=== PATIENT | male | born 1980 | race Caucasian/White ===

== ENCOUNTER 2017-03-07 00:50 | Emergency (ER) | payer MEDICAID ==
[~2017-03-07] VITALS: Ht 182.9 cm; Wt 106.6 kg
--- NOTE | 2017-03-07 01:08 | Emergency Room Report ---
History of Present Illness Time Seen by MD Villalta Presenting Problem in Triage Pt arrived:Walked Presenting Problem:LACERATION TO RIGHT HAND. 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 N Clinical Suspician of Infection? N Mental Status: 1 - Regular (Normal Baseline) Sepsis Risk:Possible Sepsis Risk Have you (or family members/close friends) recently traveled outside the [place]? N If Yes, where/when: Have you had exposure to infectious disease within the past month? N TB? Other? Specify: Source patient, RN notes reviewed, family, old records Exam Limitations no limitations Comment lac to rt hand bc cox on broken glass Cardiac Chest Pain Chest pain indicative of cardiac No Timing/Duration this evening Severity moderate ALLERGIES Coded Allergies: No Known Allergies (03/07/17) Home Medications Reported Medications No Known Home Medications History Medical History General CAD? No Angina: No NM: No Hypertension? No Hyperlipidemia? No CHF? No DVT? No PE? No COPD? No Asthma? No Anemia? No GERD? No Gastric ulcers? No GI Bleed? No Hernia? No Thyroid Problems? No Hypothyroidism? No CVA? No Seizures? No Diabetes? No Renal Insuffiency? No End Stage Renal Disease? No UTI? No Stones? No BPH? No GB Disease: No Nephritic Syndrome? No Asplenia? No Hepatitis? No Sickle Cell Disease? No Arthritis? No Migraines? No Cataracts? No Glaucoma? No MRSA? No HIV? No TB? No Anxiety? Yes Depression? No Cancer? No More? No Immunization Hx DT/Tetanus 5-10 Years Ago Surgical Hx Previous Surgery?Y TONSILS Social History Smoking Hx Smoker: Current Every Day Smoker Tobacco: Yes Type Cigarettes Packs/day < 1 Pack Alcohol Alcohol: No Drugs none Review of Systems All Other Systems Reviewed and Negative Constitutional denies fever Eyes denies drainage ENT denies: ear discharge. Respiratory denies cough, denies shortness of breath, denies wheezing Cardiovascular denies chest pain, denies palpitations, denies syncope Gastrointestinal denies abdominal pain, denies diarrhea, denies vomiting Genitourinary denies: dysuria, frequency, hesitancy, hematuria. Musculoskeletal denies back pain, denies joint pain, denies joint swelling, denies neck pain Skin see HPI, denies rash, other Psychiatric/Neurological denies emotional problems, denies seizure Physical Exam Vital Signs Vital Signs Date Time Temp Pulse Resp B/P Pulse O2 O2 Flow FiO2 Ox Delivery Rate 03/07 0150 98.8 98 20 98 03/07 0057 98.8 98 20 98 - WBC >12,000 or <4,000 or 10% bands? 2 or more SIRS Criteria Met? B/P: MAP: Creatinine >2.0? UA output<0.5ml/kg/hr for 2 hrs? Platelet count >100,000? Lactate >2.0mmol/1? INR >1.2 or PTT > than 60 sec? Evidence of Organ Dysfunction? Provider documented clinical suspician of infection? N Sepsis Criteria Count: 2 Sepsis Risk: Possible Sepsis Risk General Appearance no apparent distress Eye Exam - bilateral eye PERRL, bilateral eye EOMI Ear, Nose, Throat normal ENT inspection Neck supple Respiratory Status No: respiratory distress. 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 No Results/Orders Current Medication Orders Sig/Annalee Start time Last Medication Dose Route Stop Time Status Admin Lidocaine HCl 0 .STK-MED ONE 03/07 130 DC .ROUTE Diphtheria/Pertussis/ 0.5 ML ONCE ONE 03/07 115 DC 03/07 Tetanus Vacc IM 03/07 116 0122 Diphtheria/Pertussis/ 0 .STK-MED ONE 03/07 109 DC Tetanus Vacc IM Diphtheria/Pertussis/ 0 .STK-MED ONE 03/07 108 DC Tetanus Vacc IM Procedures Laceration/Wound Repair Laceration/Wound Repair Risks/benefits discussed with pt/guardian? Yes Tetanus status not up to date Wound Location hand Wound Length (cm) 1 Wound's Depth, Shape sucutaneous tissue Wound Explored no FB identified Risk of retained FB explained to pt/guardian? Yes Irrigated w/ Saline (ccs) 0 Wound Prep Hibiclens, Saline Anesthesia 1% Lidocaine, Local Volume Anesthetic (ccs) 2 Wound Debrided none Wound Repaired With sutures Suture Size/Type 4:0, Ethilon Layer Closure No Total Number Sutures 4 Sterile Dressing Applied Yes Splint Applied No Sling Applied No Departure Departure Time of Disposition 0145 Disposition DC Home or Self Care(routine) Clinical Impression Primary Impression: Hand laceration Qualifiers: Encounter type: initial encounter Foreign body presence: without foreign body Laterality: right Qualified Code: S61.411A - Laceration without foreign body of right hand, initial encounter Condition STABLE Patient Instructions DI for Laceration Repair Additional Instructions suture out 10 days and recheck if needed Discharge Counseling Counseled pt/family regarding diagnosis, follow up needs Prescriptions Current Visit Scripts No Known Home Medications ED Critical Care Critical Care No at 015
--- OUTSIDE RECORDS SUMMARY | 2017-03-13 11:56 | External Medical Summary Rpt | CCD ---
Author Author , LOURDES FREED Address Unknown Phone [email or web address] Care Team Providers Care Games Manager Name Role Phone VIVI TRINIDAD Unavailable Unavailable [facility] Unavailable Unavailable CENTER, [facility] Unavailable Unavailable MEDICAL CENTE, [facility] Unavailable Unavailable PHYSICIAN PRA, [facility] PHYSICIAN PRA LARON MICA, LARON Unavailable Unavailable [facility] Unavailable Unavailable MEDICAL G, [facility]available Unavailable HOLDINGS, [facility] MOGILEVSKI MARLENE, Unavailable Unavailable MOGILEVSKI MARLENE MOGILEVSKI MARLENE, Unavailable Unavailable [facility] MAR[facility] JEANNETTE RAN, JEANNETTE Unavailable Unavailable RAN RICE SHA, RICE SHA Unavailable Unavailable RISHMAWI HAZ, Unavailable Unavailable RISHMAWI HAZ BROOKE GHOSH ANATOLY, Unavailable Unavailable BROOKE GHOSH ANATOLY SHALASH AMI, SHALASH Unavailable Unavailable [facility], [facility] Unavailable Unavailable PRACTICE, [facility] PRACT[facility] Purpose Continuity of Care Document - 01-28-2015 through 2016 Problems Code Diagnosis DOS Provider Status [id number] FOREIGN 08-28-2016 [facility] EMERGENCY EYE PART PHYS UNS LT EYE INITIAL ENC [id number] INJ 03-12-2016 [facility] CON[facility] FAMILY RNEAL PRACTICE ABRASION W/O FB RT EYE INIT B1920 UNS VIRAL 03-11-2016 [place] HEPATITIS C FAMILY WITHOUT PRACTICE HEPATIC COMA G894 CHRONIC 03-11-2016 [place] PAIN FAMILY SYNDROME PRACTICE R209 UNSPECIFIED 03-11-[address] 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 UNSPECIFIED I214 NON-ST 11-08-2015 [facility]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 I308 OTHER FORMS 11-07-2015 [facility] PERICARDITI MEDICAL G S I340 NONRHEUMATI 11-07-2015 [facility] MEDICAL G INSUFFICIEN CY I361 NONRHEUMATI 11-07-2015 [facility] MEDICAL G INSUFFICIEN CY R609 EDEMA 11-07-2015 [facility] UNSPECIFIED REGIONAL MEDICAL CENTE R740 NONSPECIFIC 10-17-2015 [place] ELEVATION FAMILY LEVELS PRACTICE TRANSAMINAS E & LDH E8352 HYPERCALCEM 10-08-2015 [facility] IA FAMILY PRACTICE N529 MALE 10-08-2015 [facility] ERECTILE FAMILY DYSFUNCTION PRACTICE UNSPECIFIED Z209 CONTACT W/ 10-08-2015 [facility] AND [facility] EXPOSURE PRACTICE UNS COMMUNICABL E DISEASE Z139 ENCOUNTER 09-24-2015 [facility] FOR FAMILY SCREENING PRACTICE UNSPECIFIED 98475 UNSPECIFIED 01-28-2015 [facility] SITE OF N EMERGENCY ANKLE PHYS SPRAIN AND STRAIN E8859 FALL FROM 01-28-2015 [facility] OTHER N EMERGENCY SLIPPING PHYS TRIPPING OR STUMBLING Medications Na ND Rx Da Fi Fi Am Da Di Ph RX Ph St me C No te ll ll ou ys ag ar # ys at rm s nt no ma ic us Or Da si cy ia de te s n re d GE 24 03 04 5. 5 00 KE Ac NT 20 -3 -2 00 00 NT ti AM 80 0- 8- 0 01 UC ve IC 58 20 20 01 [place] IN 06 17 17 76 0 40 CV 0. S 3% PH AR EY MA E CY OP LL S C, DB A CV S PH AR MA CY #3 01 6 Procedures Procedure DOS Code Location Performer Comment REMOVAL 88547 [facility] REZA FB EYE 7 [place] [facility] EMERGENCY GUILLERMINA PHYS SUPERFICI AL XTRNL ECG 23964 [facility] 6 IMMEDIATE JR ANATOLY CONTINUOU CARE S RHYTHM CENTER W/I&R UP TO 48 HRS ECG 51006 [facility] RADER ROUTINE 6 REGIONAL ECG PHYSICIAN W/LEAST PRA 12 LDS I&R ONLY XTRNL ECG 86769 [facility] MCDERMOTT & 48 HR 6 REGIONAL REGIONAL RECORDING MEDICAL MEDICAL STEFANO AGARWAL ECHO 09068 [facility] LARON TTHRC R-T 6 NE HEALTH MICA 2D MEDICAL W/WOM-MOD G E COMPL SPEC&COLR D EXTERNAL 56983 [facility] MCDERMOTT ECG 6 REGIONAL REGIONAL SCANNING MEDICAL MEDICAL ANALYSIS STEFANO AGARWAL REPORT ECG 53661 [facility] MCDERMOTT ROUTINE 6 REGIONAL REGIONAL ECG MEDICAL MEDICAL W/LEAST CENTE CENTE 12 LDS TRCG ONLY W/O I&R COLLECTIO 89404 EVA ARAUJO N VENOUS 6 R FAMILY AMI BLOOD PRACTICE VENIPUNCT URE IADNA 12750 LAB [facility] HEPATITIS 6 ESHA ESHA C QUANT HOLDINGS HOLDINGS & [place] [address] LAB AUDREY LAB AUDREY PARATHORM 6 ESHA ESHA ONE HOLDINGS HOLDINGS NFCT AGNT 37271 LAB AUDREY LAB AUDREY GENOTYP 6 ESHA ESHA NUCLEIC HOLDINGS HOLDINGS ACID HEPATITIS C VIRUS CALCIUM 26034 LAB A[facility]Y LAB AUDREY IONIZED 6 ESHA ESHA HOLDINGS HOLD[place] HGB 29901 EVA PRASANTHBEVERLEY GLYCOSYLA 6 R FAMILY AMI RON PRACTICE DEVICE CLEARED FDA HOME USE Encounters Encounter Start End Date Code Location Performer Type Date EMERGENCY 88632 [facility] 7 7 [facility] EMERGENCY T VISIT PHYS MODERATE SEVERITY OFFICE 32176 JEANNETTE JEANNETTE OUTPATIEN 6 6 RAN RAN T VISIT 25 MINUTES OFFICE 95116 EVA GILLH OUTPATIEN 6 6 R FAMILY AMI T VISIT PRACTICE 15 MINUTES OFFICE 00684 EVA GILLH OUTPATIEN 6 6 R FAMILY AMI T VISIT PRACTICE 15 MINUTES OFFICE 11321 [facility] MOGILEVSK OUTPATIEN 6 6 I MARLENE I MARLENE T NEW 45 MINUTES [facility]PITAL [facility] - 6 6 REGIONAL OUTPATIEN MEDICAL T CENTE OFFICE 28635 VERATE PRASANTHLASH OUTPATIEN 6 6 R FAMILY AMI T VISIT PRACTICE 15 MINUTES OFFICE 94536 VERATE PRASANTHLASH OUTPATIEN 6 6 R FAMILY AMI T VISIT PRACTICE 15 MINUTES OFFICE 25594 VERATE PRASANTHLASH OUTPATIEN 6 6 R FAMILY AMI T NEW 45 PRACTICE MINUTES EMERGENCY 20661 [facility] 5 5 [place] DEPARTMEN EMERGENCY T VISIT PHYS HIGH/URGE NT SEVERITY
--- OUTSIDE RECORDS SUMMARY | 2017-03-13 11:56 | External Medical Summary Rpt ---
Author Author LOURDES Kasper, [employer]DES [employer] Organization [employer] Address Unknown Phone Unavailable
--- OUTSIDE RECORDS SUMMARY | 2017-03-13 11:56 | External Medical Summary Rpt | CCD ---
Demographics Preferred Language Sudanese Marital Status Unknown Holiness Affiliation Unknown Race Unknown Ethnic Group Unknown Author Author , SHARRI FREED Address Unknown Phone [email or web address] Immunization Name Date Rout CVX Reac Dose Comm Prov Is Faci e tion ent ider Refu lity Give sed n Td 10-0 9 999 Hist H191 No H191 (tommy 2-19 oric lt), 98 al Info adso rmat rbed ion - Sour ce Unsp ecif ied
--- OUTSIDE RECORDS SUMMARY | 2017-03-13 11:56 | External Medical Summary Rpt | CCD ---
Author Author , LOURDES FREED Address Unknown Phone [email or web address] Care Team Providers Care Robotic Welder Name Role Phone VIVI TRINIDAD Unavailable Unavailable [facility] Unavailable Unavailable CENTER, [facility] Unavailable Unavailable MEDICAL CENTE, [facility]ENTE [facility] Unavailable Unavailable PHYSICIAN PRA, [facility] PHYSICIAN PRA LARON MICA, LARON Unavailable Unavailable [facility] Unavailable Unavailable MEDICAL G, [facility] MEDICAL G [facility] Unavailable Unavailable HOLDINGS, [facility] MOGILEVSKI MARLENE, Unavailable Unavailable MOGILEVSKI MARLENE MOGILEVSKI MARLENE, Unavailable Unavailable MOGILEVSKI MARLENE JEANNETTE RAN, JEANNETTE Unavailable Unavailable RAN RICE SHA, RICE SHA Unavailable Unavailable RISHMAWI HAZ, Unavailable Unavailable RISHMAWI HAZ BROOKE GHOSH ANATOLY, Unavailable Unavailable BROOKE GHOSH ANATOLY SHALASH AMI, SHALASH Unavailable Unavailable [facility] Unavailable Unavailable EMERGENCY PH[facility], [facility] EM[facility] Unavailable Unavailable PRACTICE, [facility] Purpose Continuity of Care Document - 01-28-2015 through 2016 Problems Code Diagnosis DOS Provider Status [id number] FOREIGN 08-28-2016 [facility] N EMERGENCY EYE PART PHYS UNS LT EYE INITIAL ENC [id number] INJ 03-12-2016 [facility] [facility] FAMILY RNEAL PRACTICE ABRASION W/O FB RT EYE INIT B1920 UNS VIRAL 03-11-2016 [place] HEPATITIS C FAMILY WITHOUT PRACTICE HEPATIC COMA G894 CHRONIC 03-11-2016 [place] PAIN FAMILY SYNDROME PRACTICE R209 UNSPECIFIED 03-11-2016 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 NON-ST 11-08-2015 [facility]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 I308 OTHER FORMS 11-07-2015 [facility] PERICARDITI MEDICAL G S I340 NONRHEUMATI 11-07-2015 [facility] MEDICAL G INSUFFICIEN CY I361 NONRHEUMATI 11-07-2015 [facility]IC[facility] MEDICAL G INSUFFICIEN CY R609 EDEMA 11-07-2015 [facility] UNSPECIFIED REGIONAL MEDICAL CENTE R740 NONSPECIFIC 10-17-2015 [place] ELEVATION FAMILY LEVELS PRACTICE TRANSAMINAS E & LDH E8352 HYPERCALCEM 10-08-2015 [place] IA FAMILY PRACTICE N529 MALE 10-08-2015 [place] ERECTILE FAMILY DYSFUNCTION PRACTICE UNSPECIFIED Z209 CONTACT W/ 10-08-2015 [place] AND FAMILY EXPOSURE PRACTICE UNS COMMUNICABL E DISEASE Z139 ENCOUNTER 09-24-2015 [place] FOR FAMILY SCREENING PRACTICE UNSPECIFIED 83910 UNSPECIFIED 01-28-2015 [facility] SITE OF N EMERGENCY ANKLE PHYS SPRAIN AND STRAIN E8859 FALL FROM 01-28-2015 [facility] OTHER N EMERGENCY SLIPPING PHYS [...] Procedure DOS Code Location Performer Comment REMOVAL 20699 [facility] VIVI FB EYE 7 RIVRE CONJUNCTI EMERGENCY GUILLERMINA PHYS SUPERFICI AL XTRNL ECG 31092 [facility] 6 IMMEDIATE JR ANATOLY CONTINUOU CARE S RHYTHM CENTER W/I&R UP TO 48 HRS ECG 47798 [facility] RADER ROUTINE 6 REGIONAL ECG PHYSICIAN W/LEAST PRA 12 LDS I&R ONLY XTRNL ECG 06521 [facility] MCDERMOTT & 48 HR 6 REGIONAL REGIONAL RECORDING MEDICAL MEDICAL STEFANO AGARWAL ECHO 77526 [facility] L[facility] TTHRC R-T 6 NE HEALTH MICA 2D MEDICAL W/WOM-MOD G E COMPL SPEC&COLR D EXTERNAL 69864 [facility] MCDERMOTT ECG 6 REGIONAL REGIONAL SCANNING MEDICAL MEDICAL ANALYSIS CENTE CENTE REPORT ECG 63506 [facility] MCDERMOTT ROUTINE 6 REGIONAL REGIONAL ECG MEDICAL MEDICAL W/LEAST CENTE CENTE 12 LDS TRCG ONLY W/[place] [address] LAB [facility]UDREY LAB AUDREY PARATHORM 6 ESHA ESHA ONE HOLDINGS HOLDINGS CALCIUM 47121 LAB AUDREY LAB AUDREY IONIZED 6 ESHA ESHA HOLDINGS HOLDINGS NFCT AGNT 85726 LAB A[facility]Y LAB AUDREY GENOTYP 6 ESHA ESHA NUCLEIC HOLDINGS HOLDINGS ACID HEPATITIS C VIRUS COLLECTIO 61581 EVA ARAUJO N VENOUS 6 R FAMILY AMI BLOOD PRACTICE VENIPUNCT URE IADNA 65957 LAB [facility] LAB AUDREY HEPATITIS 6 ESHA ESHA C QUANT HOLDINGS HOLDINGS & REVERSE TRANSCRIP TION HGB 44825 DIPAKMAVERICK PRASANTHLASH GLYCOSYLA 6 R FAMILY AMI RON PRACTICE DEVICE CLEARED FDA HOME USE Encounters Encounter Start End Date Code Location Performer Type Date EMERGENCY 38847 [facility] 7 7 [facility] EMERGENCY T VISIT PHYS MODERATE SEVERITY OFFICE 89534 VERATE SHALASH OUTPATIEN 6 6 R FAMILY AMI T VISIT PRACTICE 15 MINUTES OFFICE 98286 JEANNETTE JEANNETTE OUTPATIEN 6 6 RAN RAN T VISIT 25 MINUTES OFFICE 32919 VERATE PRASANTHLASH OUTPATIEN 6 6 R FAMILY AMI T VISIT PRACTICE 15 MINUTES OFFICE 55908 [facility] MOGILEVSK OUTPATIEN 6 6 I MARLENE I MARLENE T NEW 45 MINUTES [facility]OSPITAL [facility] - 6 6 REGIONAL OUTPATIEN MEDICAL T CENTE OFFICE 86575 [place] PRASANTHLASH OUTPATIEN 6 6 R FAMILY AMI T VISIT PRACTICE 15 MINUTES OFFICE 55036 DIPAKCHESTE SHALASH OUTPATIEN 6 6 R FAMILY AMI T VISIT PRACTICE 15 MINUTES OFFICE 38184 [place] SHALASH OUTPATIEN 6 6 R FAMILY AMI T NEW 45 PRACTICE MINUTES EMERGENCY 92315 [facility] 5 5 [place] DEPARTMEN EMERGENCY T VISIT PHYS HIGH/URGE NT SEVERITY
--- OUTSIDE RECORDS SUMMARY | 2017-03-13 11:56 | External Medical Summary Rpt | CCD ---
Author Author , LOURDES FREED Address Unknown Phone [email or web address] Care Team Providers Care Multicultural Manager Name Role Phone VIVI TRINIDAD Unavailable Unavailable [facility] Unavailable Unavailable CENTER, [facility] Unavailable Unavailable MEDICAL CENTE, [facility] Unavailable Unavailable PHYSICIAN PRA, [facility] PHYSICIAN PRA LARON MICA, LARON Unavailable Unavailable M[facility] Unavailable Unavailable MEDICAL G, [facility] Unavailable Unavailable HOLDINGS, [facility] MOGILEVSKI MARLENE, Unavailable Unavailable [facility]ILEVSKI MARLENE MOGILEVSKI MARLENE, Unavailable Unavailable [facility] MARLENE JEANNETTE RAN, JEANNETTE Unavailable Unavailable RAN RICE SHA, RICE SHA Unavailable Unavailable RISHMAWI HAZ, Unavailable Unavailable RISHMAWI HAZ BROOKE GHOSH ANATOLY, Unavailable Unavailable BROOKE GHOSH ANATOLY SHALASH AMI, SHALASH Unavailable Unavailable [facility]available Unavailable [facility], [facility] Unavailable Unavailable PRACTICE, [facility] Purpose Continuity of Care Document - 01-28-2015 through 2016 Problems Code Diagnosis DOS Provider Status [id number] FOREIGN 08-28-2016 [facility] N EMERGENCY EYE PART PHYS UNS LT EYE INITIAL ENC [id number] INJ 03-12-2016 [facility] FAMILY RNEAL PRACTICE ABRASION W/O FB RT EYE INIT B1920 UNS VIRAL 03-11-2016 [facility] HEPATITIS C FAMILY WITHOUT PRACTICE HEPATIC COMA G894 CHRONIC 03-11-2016 [facility] PAIN FAMILY SYNDROME PRACTICE R209 UNSPECIFIED 03-11-2016 [facility] DISTURBANCE PRACTICE S OF SKIN SENSATION R55 SYNCOPE AND 11-17-2015 [facility] IMMEDIATE CARE CENTER 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 IDIOPATHIC NEUROPATHY UNSPECIFIED 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 NON-ST 11-08-2015 [facility]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 I308 OTHER FORMS 11-07-2015 [facility] PERICARDITI MEDICAL G S I340 NONRHEUMATI 11-07-2015 [facility] MEDICAL G INSUFFICIEN CY I361 NONRHEUMATI 11-07-2015 [facility] [facility] TRICUSPID HEALTH VALVE MEDICAL G INSUFFICIEN CY R609 EDEMA 11-07-2015 [facility] UNSPECIFIED REGIONAL MEDICAL CENTE R740 NONSPECIFIC 10-17-2015 [facility] ELEVATION FAMILY LEVELS PRACTICE TRANSAMINAS E & LDH E8352 HYPERCALCEM 10-08-2015 [facility] IA FAMILY PRACTICE N529 MALE 10-08-2015 [facility] ERECTILE FAMILY DYSFUNCTION PRACTICE UNSPECIFIED Z209 CONTACT W/ 10-08-2015 [facility] AND FAMILY EXPOSURE PRACTICE UNS COMMUNICABL E DISEASE Z139 ENCOUNTER 09-24-2015 [facility] FOR FAMILY SCREENING PRACTICE UNSPECIFIED 05192 UNSPECIFIED 01-28-2015 [facility] SITE OF N EMERGENCY ANKLE PHYS SPRAIN AND STRAIN E8859 FALL FROM 01-28-2015 [facility] OTHER N EMERGENCY SLIPPING PHYS TRIPPING OR [...] Procedure DOS Code Location Performer Comment REMOVAL 30005 [facility] VIVI FB EYE 7 RIVER CONJUNCTI EMERGENCY GUILLERMINA PHYS SUPERFICI AL XTRNL ECG 12386 [facility] 6 IMMEDIATE JR NAATOLY CONTINUOU CARE S RHYTHM CENTER W/I&R UP TO 48 HRS ECG 97281 [facility] RADER ROUTINE 6 REGIONAL ECG PHYSICIAN W/LEAST PRA 12 LDS I&R ONLY XTRNL ECG 57105 [facility] MCDER[facility]OTT & 48 HR 6 REGIONAL REGIONAL RECORDING MEDICAL MEDICAL STEFANO AGARWAL ECHO 27664 [facility] TTHRC R-T 6 NE HEALTH MICA 2D MEDICAL W/WOM-MOD G E COMPL SPEC&COLR D EXTERNAL 90100 [facility] MCDERMOTT ECG 6 REGIONAL REGIONAL SCANNING MEDICAL MEDICAL ANALYSIS CENTE CENTE REPORT ECG 30934 [facility] MCDERMOTT ROUTINE 6 REGIONAL REGIONAL ECG MEDICAL MEDICAL W/LEAST CENTE CENTE 12 LDS TRCG ONLY W/[place] I&[place] [address] LAB AUDREY LAB AUDREY PARATHORM 6 ESHA ESHA ONE HOLDINGS HOLDINGS CALCIUM 12784 LAB AUDREY LAB AUDREY IONIZED 6 ESHA ESHA HOLDINGS HOLDINGS NFCT AGNT 64095 LAB AUDREY LAB AUDREY GENOTYP 6 ESHA ESHA NUCLEIC HOLDINGS HOLDINGS ACID HEPATITIS C VIRUS COLLECTIO 52073 EVA ARAUJO N VENOUS 6 R FAMILY AMI BLOOD PRACTICE VENIPUNCT URE IADNA 59517 LAB [facility] LAB AUDREY HEPATITIS 6 ESHA ESHA C QUANT HOLDINGS HOLDINGS & REVERSE TRANSCRIP TION HGB 31167 DIPAKMAVERICK PRASANTHLASH GLYCOSYLA 6 R FAMILY AMI RON PRACTICE DEVICE CLEARED FDA HOME USE Encounters Encounter Start End Date Code Location Performer Type Date EMERGENCY 21424 [facility] 7 7 [facility] EMERGENCY T VISIT PHYS MODERATE SEVERITY OFFICE 83496 VERATE SHALASH OUTPATIEN 6 6 R FAMILY AMI T VISIT PRACTICE 15 MINUTES OFFICE 35246 JEANNETTE JEANNETTE OUTPATIEN 6 6 RAN RAN T VISIT 25 MINUTES OFFICE 56198 VERATE PRASANTHLASH OUTPATIEN 6 6 R FAMILY AMI T VISIT PRACTICE 15 MINUTES OFFICE 24348 [facility] MOGILEVSK OUTPATIEN 6 6 I MARLENE I MARLENE T NEW 45 MINUTES [facility]OSPITAL [facility] - 6 6 REGIONAL OUTPATIEN MEDICAL T CENTE OFFICE 98780 [place] PRASANTHLASH OUTPATIEN 6 6 R FAMILY AMI T VISIT PRACTICE 15 MINUTES OFFICE 78931 DIPAKCHESTE SHALASH OUTPATIEN 6 6 R FAMILY AMI T VISIT PRACTICE 15 MINUTES OFFICE 54071 [place] SHALASH OUTPATIEN 6 6 R FAMILY AMI T NEW 45 PRACTICE MINUTES EMERGENCY 08372 [facility] 5 5 [place] DEPARTMEN EMERGENCY T VISIT PHYS HIGH/URGE NT SEVERITY
--- OUTSIDE RECORDS SUMMARY | 2017-03-13 11:56 | External Medical Summary Rpt | CCD ---
Demographics Preferred Language Barbadian Marital Status Unknown Moravian Affiliation Unknown Race Unknown Ethnic Group Unknown Author Author , SHARRI FREED Address Unknown Phone [email or web address] Immunization Name Date Rout CVX Reac Dose Comm Prov Is Faci e tion ent ider Refu lity Give sed n Td 10-0 9 999 Hist H191 No H191 (tommy 2-19 oric lt), 98 al Info adso rmat rbed ion - Sour ce Unsp ecif ied
--- OUTSIDE RECORDS SUMMARY | 2017-03-13 11:56 | External Medical Summary Rpt | CCD ---
Author Author , LOURDES FREED Address Unknown Phone [email or web address] Care Team Providers Care Physician Office Clin Asst Name Role Phone VIVI TRINIDAD Unavailable Unavailable [facility] Unavailable Unavailable CENTER, [facility] Unavailable Un[facility], [facility] Unavailable Unavailable PHYSICIAN PRA, [facility] PHYSICIAN PRA LARON MICA, LARON Unavailable Unavailable [facility] Unavailable Unavailable MEDICAL G, [facility] Unavailable Unavailable [facility]INGS, [facility] MOGILEVSKI MARLENE, Unavailable Unavailable MOGILEVSKI MARLENE MOGILEVSKI MARLENE, Unavailable Unavailable [facility] JEANNETTE RAN, JEANNETTE Unavailable Unavailable RAN RICE SHA, RICE SHA Unavailable Unavailable RISHMAWI HAZ, Unavailable Unavailable RISHMAWI HAZ [facility]AT[facility], Unavailable Unavailable [facility] SHALASH AMI, SHALASH Unavailable Unavailable [facility] Unavailable [facility] PHYS, COUNTS INCLUDE 234 BEDS AT [facility] EMERGENCY PHYS [facility] Unavailable Unavailable PRACTICE, [facility] PRACTICE Purpose Continuity of Care Document - 01-28-2015 through 2016 Problems Code Diagnosis DOS Provider Status [id number] FOREIGN 08-28-2016 [facility] N EMERGENCY EYE PART PHYS UNS LT EYE INITIAL ENC [id number] INJ 03-12-2016 [place] CONJUNCT&CO FAMILY RNEAL PRACTICE ABRASION W/O FB RT EYE INIT B1920 UNS VIRAL 03-11-2016 [place] HEPATITIS C FAMILY WITHOUT PRACTICE HEPATIC COMA G894 CHRONIC 03-11-2016 [place] PAIN FAMILY SYNDROME PRACTICE R209 UNSPECIFIED 03-11-2016 [facility] DISTURBANCE PRACTICE S OF SKIN SENSATION R55 SYNCOPE AND 11-17-2015 [facility] 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 IDIOPATHIC NEUROPATHY UNSPECIFIED I214 NON-ST 11-08-2015 [facility]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 I308 OTHER FORMS 11-07-2015 [facility] PERICARD[facility] MEDICAL G S I340 NONRHEUMATI 11-07-2015 [facility] INSUFFICIEN CY I361 NONRHEUMATI 11-07-2015 [facility] MEDICAL G INSUFFICIEN CY R609 EDEMA 11-07-2015 [facility] U[facility]PECIFIED [facility]ENTE R740 NONSPECIFIC 10-17-2015 [place] ELEVATION FAMILY LEVELS PRACTICE TRANSAMINAS E & LDH E8352 HYPERCALCEM 10-08-2015 [place] IA FAMILY PRACTICE N529 MALE 10-08-2015 [place] ERECTILE FAMILY DYSFUNCTION PRACTICE UNSPECIFIED Z209 CONTACT W/ 10-08-2015 [place] AND FAMILY EXPOSURE PRACTICE UNS COMMUNICABL E DISEASE Z139 ENCOUNTER 09-24-2015 [place] FOR FAMILY SCREENING PRACTICE UNSPECIFIED 42542 UNSPECIFIED 01-28-2015 [facility] SITE OF N EMERGENCY ANKLE PHYS SPRAIN AND STRAIN E8859 FALL FROM 01-28-2015 [facility] OTHER N EMERGENCY SLIPPING PHYS TRIPPING [...] Procedure DOS Code Location Performer Comment REMOVAL 10283 [facility] FB EYE 7 [facility] EMERGENCY GUILLERMINA PHYS SUPERFICI AL XTRNL ECG 57597 [facility] 6 IMMEDIATE JR ANATOLY CONTINUOU CARE S RHYTHM CENTER W/I&R UP TO 48 HRS ECG 77477 [facility] RADER ROUTINE 6 REGIONAL ECG PHYSICIAN W/LEAST PRA 12 LDS I&R ONLY XTRNL ECG 93253 [facility] MCDERMOTT & 48 HR 6 REGIONAL REGIONAL RECORDING MEDICAL MEDICAL STEFANO AGARWAL ECHO 24856 [facility] L[facility] TTHRC R-T 6 [facility] 2D MEDICAL W/WOM-MOD G E COMPL SPEC&COLR D EXTERNAL 89554 [facility] ECG 6 REGIONAL REGIONAL SCANNING MEDICAL MEDICAL ANALYSIS STEFANO AGARWAL REPORT ECG 47776 [facility] ROUTINE 6 REGIONAL REGIONAL ECG MEDICAL MEDICAL W/LEAST CENTE CENTE 12 LDS TRCG ONLY W/O I&R COLLECTIO 34420 EVA ARAUJO N VENOUS 6 R FAMILY AMI BLOOD PRACTICE VENIPUNCT URE IADNA 75623 [facility] HEPATITIS 6 ESHA ESHA C [employer] [place] [address] [facility] PARATHORM 6 [facility] ONE [facility] NFCT AGNT 17300 [facility] GENOTYP 6 [facility] NUCLEIC [facility] HOLDINGS ACID HEPATITIS C VIRUS CALCIUM 28360 [facility] IONIZED 6 [facility] HGB 44191 EVA PRASANTHBEVERLEY GLYCOSYLA 6 R FAMILY AMI RON PRACTICE DEVICE CLEARED [employer] HOME USE Encounters Encounter Start End Date Code Location Performer Type Date EMERGENCY [address] [facility] [address] [facility] EMERGENCY T VISIT PHYS MODERATE SEVERITY OFFICE 02770 JEANNETTE JEANNETTE OUTPATIEN 6 6 RAN RAN T VISIT 25 MINUTES OFFICE 53343 EVA GILLH OUTPATIEN 6 6 R FAMILY AMI T VISIT PRACTICE 15 MINUTES OFFICE 27061 EVA GILLH OUTPATIEN 6 6 R FAMILY AMI T VISIT PRACTICE 15 MINUTES OFFICE 51016 MOG[facility]SK MOGILEVSK OUTPATIEN 6 6 I MARLENE I MARLENE T NEW 45 MINUTES [facility] - 6 6 REGIONAL OUTPATIEN MEDICAL T CENTE OFFICE 16221 VERATE PRASANTHLASH OUTPATIEN 6 6 R FAMILY AMI T VISIT PRACTICE 15 MINUTES OFFICE 28243 VERATE PRASANTHLASH OUTPATIEN 6 6 R FAMILY AMI T VISIT PRACTICE 15 MINUTES OFFICE 21027 VERATE PRASANTHLASH OUTPATIEN 6 6 R FAMILY AMI T NEW 45 PRACTICE MINUTES EMERGENCY [address] [facility] 5 5 [place] [facility] DEPARTMEN EMERGENCY T VISIT PHYS HIGH/URGE NT SEVERITY
== END 2017-03-07 02:00 | disposition home or self-care (01) ==
LOC: ER 00:50
PROC: 0HQFXZZ Repair Right Hand Skin, External Approach (ICD-10-PCS; principal; 2017-03-07)
DX: S61.411A Laceration without foreign body of right hand, initial encounter (principal); Z23 Encounter for immunization; W25.XXXA Contact with sharp glass, initial encounter; Y92.019 Unspecified place in single-family (private) house as the place of occurrence of the external cause